=== PATIENT | male | born 1985 | race American Indian/Alaskan Native ===

== ENCOUNTER 2018-12-18 15:54 | Emergency (ER) | payer OTHER ==
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
[2018-12-18] MEDS ORDERED: BENADRYL PO ONE (20:16)
[2018-12-18] MEDS ORDERED: TYLENOL #3 PO ONE (20:16)
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
[2018-12-18] MEDS ORDERED: BOOSTRIX IM ONE (20:48)
[2018-12-18 21:13] VITALS: BP 128/84
== END 2018-12-18 21:13 | disposition home or self-care (01) ==
LOC: ED 15:54
DX: S00.81XA Abrasion of other part of head, initial encounter (principal); H11.31 Conjunctival hemorrhage, right eye; H10.9 Unspecified conjunctivitis; Z88.0 Allergy status to penicillin; F17.200 Nicotine dependence, unspecified, uncomplicated; Y08.89XA Assault by other specified means, initial encounter; Y93.89 Activity, other specified; Y92.410 Unspecified street and highway as the place of occurrence of the external cause; Y99.8 Other external cause status
CPT/HCPCS: 70450; 90471; 90715